=== PATIENT | female | born 1960 | race Caucasian/White ===

== ENCOUNTER 2018-05-29 23:47 | Emergency (ER) | payer OTHER ==
[~2018-05-29] VITALS: Wt 109.1 kg
[~2018-05-29 23:47] MED LIST: ACET500C5 PO; BENZ-6 PO; HYDR-3980 PO; IBUP-1542 PO; NEOM28OI2 TP; PROM6.25 PO
[2018-05-30] MEDS ORDERED: KETOROLAC 15 MG INJ IV STA (00:46)
[2018-05-30] MEDS ORDERED: ALBUTEROL 0.083% (NEB) 2.5 MG/3 ML AMP HHN STA (00:46)
--- NOTE | 2018-05-30 00:58 | ERD ---
ER Documentation Chief Complaint Chief Complaint vomiting/headache/dizziness x 1 day HPI This is a 58-year-old female with a past medical history of hypertension, diabetes, controlled with diet who is presenting with 1 day of fever, chills, total body aches, fatigue with occasional lightheadedness, a mild generalized waxing and waning headache with nausea and a few episodes of nonbilious nonbloody vomiting. She does not endorse any alleviating or exacerbating factors. The patient has had no vision changes. She does not report any photophobia or phonophobia or double or blurry vision. The patient does not endorse neck or back pain. The patient denies dizziness. The patient has had no chest pain or trouble breathing. The patient denies abdominal pain. The patient denies changes to bowel movements or urination. The patient has had no focal deficits. The patient has had no weakness or numbness or tingling to the face or extremities. ROS All systems reviewed and are negative except as per history of present illness. Medications Home Meds Active Scripts Neomycin Vann/Bacitrac Zn/Poly (Triple Antibiotic Ointment) 28 Gm Oint...g., 28 GM TP TID for 5 Days Prov:CECI GUILLERMO MD 12/30/15 Ibuprofen* (Ibuprofen*) 600 Mg Tablet, 600 MG PO Q6, #15 TAB Prov:CECI GUILLERMO MD 12/30/15 Hydrocodone/Acetaminophen ([place] 10-325 Tablet) 1 Each Tablet, 1 TAB PO Q6H PRN for PAIN, #12 TAB Prov:CECI GUILLERMO MD 12/30/15 Acetaminophen* (Tylophen*) 500 Mg Capsule, 1 CAP PO Q4 PRN for PAIN AND OR ELEVATED TEMP, #30 CAP Prov:DIOGENES ESPINOZA PA-C 04/12/15 Promethazine w/Codeine* (Phenergan w/Codeine* Syrup) 5 Ml Syrup, 5 ML PO Q4H PRN for COUGH, #120 ML Prov:DIOGENES ESPINOZA PA-C 04/12/15 Benzonatate* (Tessalon Perle*) 100 Mg Capsule, 100 MG PO TID, #20 CAP Prov:DIOGENES ESPINOZA PA-C 04/12/15 Allergies Allergies: Coded Allergies: No Known Allergy (Unverified , 12/30/15) PMhx/Soc History of Surgery: No Anesthesia Reaction: No Hx Neurological Disorder: No Hx Respiratory Disorders: No Hx Cardiac Disorders: Yes (Hypertension, diabetes) Hx Psychiatric Problems: No Hx Miscellaneous Medical Probl: No Hx Alcohol Use: No Hx Substance Use: No Hx Tobacco Use: No Smoking Status: Never smoker FmHx Family History: diabetes Physical Exam Vitals Vital Signs Date Temp Pulse Resp B/P (MAP) Pulse Ox O2 O2 Flow FiO2 Time Delivery Rate 05/30/18 98.9 90 21 123/68 98 Room Air 02:06 (86) 05/30/18 93 20 95 21 02:00 05/30/18 98.9 87 21 139/65 98 Room Air 01:14 (89) 05/30/18 37.2 01:09 05/30/18 98.9 88 15 151/58 98 Room Air 00:38 (89) 05/29/18 102.8 89 18 160/71 96 23:54 (100) Physical Exam Const: No apparent distress, well-developed, well-nourished Head: Normocephalic, Atraumatic Eyes: Normal Conjunctiva. Extraocular movements intact. Pupils equal, round and reactive to light ENT: Normal External Ears, Nose and Mouth. Neck: Full range of motion. No meningismus. Resp: Mild wheezing. Otherwise no respiratory distress with full breath sounds, no rales or rhonchi. Cardio: Regular rate and rhythm. No murmurs, rubs or gallops Abd: Soft, non tender, non distended. Normal bowel sounds Skin: No petechiae or rashes Back: No midline tenderness. No CVA tenderness Ext: No cyanosis, or edema Neur: Awake and alert, oriented 4. Cranial nerves intact. No facial droop. Normal strength, sensation and coordination. Psych: Normal Mood and Affect Results 24 hrs Current Medications Medications Dose Sig/Naye Start Time Status Last (Trade) Ordered Route PRN Stop Time Admin Dose Reason Admin Sodium 1,000 ml @ Q1H ONCE 05/30/18 DC 05/30/18 Chloride 1,000 mls/hr IV 01:00 05/30/18 01:04 01:59 Ketorolac 15 mg ONCE STAT 05/30/18 DC 05/30/18 Tromethamine IV 00:46 05/30/18 01:10 (Toradol) 00:48 10 mg ONCE ONCE 05/30/18 DC 05/30/18 Metoclopramid IV 01:00 05/30/18 01:09 e HCl 01:01 (Reglan) 25 mg ONCE ONCE 05/30/18 DC 05/30/18 Diphenhydrami IV 01:00 05/30/18 01:10 ne HCl 01:01 (Benadryl) Albuterol 5 mg ONCE STAT 05/30/18 DC 05/30/18 (Proventil HHN 00:46 05/30/18 01:59 0.083% (Neb)) 00:48 650 mg ONCE ONCE 05/30/18 DC 05/30/18 Acetaminophen PO 01:00 05/30/18 01:09 (Tylenol 01:01 Tab) Procedures/MDM MDM The patient's presentation warrants further investigation. Previous medical records, if available, were reviewed. LABS The patient's laboratory testing was obtained and reviewed. No emergent treatment was required unless described below. Influenza: Negative IMAGING Imaging and Radiology interpretation reviewed. CXR FINDINGS: Mediastinum: Unremarkable. Heart size: Normal. Pulmonary vasculature: No visible engorgement. Lungs: Clear. Costophrenic sulci: Clear. Bony structures: Grossly unremarkable for age. IMPRESSION: Unremarkable single view chest. Electronically viewed and signed by Marlo Caro Physician on 05/30/2018 01:25 TREATMENT/DISPOSITION The patient presents with flulike symptoms. The patient's influenza study is negative, but a viral syndrome is certainly a possibility. The patient did have some faint wheezing on exam. Viral bronchitis is likely. The patient's x-ray does not reveal pneumonia. While the patient is febrile, the patient's vital signs are otherwise unremarkable. The patient does not appear septic. I do not feel the patient requires a full septic workup. I doubt a bacterial etiology. I do not feel the patient would benefit from antibiotics. The patient also reports a headache. I believe this to be related to her viral syndrome as well. Differential diagnosis includes migraine, tension headache, cluster headache. The patient has no focal deficits. The neurologic exam is reassuring. I have decreased suspicion for cerebral ischemia. There was no trauma or injury. There is no personal or family history of cerebral aneurysm. This is not the worst headache of the patient's life. It was not acutely severe. It is been progressive in nature. I have decreased suspicion for SAH or other ICH. I have low suspicion for temporal arteritis, cavernous venous thrombosis, subdural hematoma, epidural hematoma, meningitis. I do not feel the patient requires CT imaging at this time. The patient was treated with IV fluids, Toradol, Tylenol, Reglan and Benadryl with improvement of her symptoms. DISCHARGE Upon reevaluation of the patient, symptoms have improved. No emergent diagnoses were identified. At this time, I feel that the patient stable for discharge. The patient was instructed to follow-up with a primary care physician in 1-3 days. The patient will be given strict precautions with which to return to the emergency department. Prescriptions: Zofran, ibuprofen, albuterol The patient's blood pressure was elevated at greater than 120/80 while in the emergency department. The patient was otherwise stable with no evidence of hypertensive urgency or emergency. The patient does not require admission for blood pressure control. I have discussed with the patient the risks of hypertension. I have instructed the patient to return to the ER for any new or worsening symptoms including chest pain, shortness of breath, headache, blurred vision, confusion, nausea, vomiting or LOC. I have advised the patient to follow up with the primary care physician for outpatient monitoring and treatment for hypertension in 1-3 days. Disclaimer: Inadvertent spelling and grammatical errors are likely due to EHR/dictation software use and do not reflect on the overall quality of patient care. Note that the electronic time recorded on this note does not necessarily reflect the actual time of the patient encounter. Departure Diagnosis: Primary Impression: Viral syndrome Additional Impressions: Bronchitis Fever Fever type: unspecified Qualified Codes: R50.9 - Fever, unspecified Myalgia Condition: Stable Patient Instructions: Bronchitis, No Antibiotic (Adult), Fever Control (Adult), Headache, Unspecified, Viral Syndrome (Adult) Additional Instructions: Thank you for for coming to [facility] for your care today. Please ask your nurse or provider if you have questions about your care today and do not leave until all your questions have been answered. Please use any medications given as directed and follow-up with your doctor (or the doctor you were referred to) in the next 1-3 days. If you do not have a primary care doctor you may follow up at the [facility] or [facility] (listed below). You may also use motrin and tylenol as needed for fever and/or pain unless instructed otherwise by your provider or nurse. Indications for more urgent follow-up have been discussed, but you may return to the Emergency Department at ANY time for any worrisome or worsening symptoms. If you have abdominal pain, please know that no test or exam you received is perfect and you should follow up within 8 hours for continued pain. If you had any imaging studies today, such as an X-Ray or CT Scan, these studies will be reviewed later by a radiologist. You will be called if there are important findings that were not identified today, so make sure the contact information you provided at registration is correct. If you received any narcotic pain control medicine today, such as Vicodin, Morphine or Dilaudid, your coordination and judgment may be affected for a number of hours. Please do not drive or operate heavy machinery, and you may want someone to assist you at home. If you were given a prescription for narcotic medication, be aware that it is very addictive- use sparingly and only if necessary. PLEASE SEEK FURTHER EVALUATION AND MANAGEMENT AT YOUR DOCTORS OFFICE WITHIN THE NEXT 1-3 DAYS. IT IS YOUR RESPONSIBILITY TO MAKE AN APPOINTMENT FOR FOLOW-UP CARE. IF YOU HAVE A PRIMARY DOCTOR, PLEASE CALL THEIR OFFICE TO SCHEDULE AN APPOINTMENT FOR FOLLOW UP. IF YOU DO NOT HAVE A PRIMARY DOCTOR YOU CAN CALL OUR PHYSICIAN REFERRAL HOTLINE AT IF YOU CAN NOT AFFORD TO SEE A PHYSICIAN YOU CAN CHOSE FROM THE FOLLOWING [facility] CL[facility]ICS: [facility] [address] [facility] [address] [facility] [address] [facility] [address] [facility] [address] [facility]. [facility]. [address] GIULIA NAJERA MD May 30, 2018 00:58
[2018-05-30] MEDS ORDERED: DIPHENHYDRAMINE 50 MG INJ IV ONE (01:00)
[2018-05-30] MEDS ORDERED: ACETAMINOPHEN 325 MG TAB PO ONE (01:00)
[2018-05-30] MEDS ORDERED: METOCLOPRAMIDE 10 MG INJ IV ONE (01:00)
[2018-05-30] MEDS ORDERED: SOD CHLORIDE 0.9% 1,000 ML IV ONE (01:00)
[2018-05-30 02:40] VITALS: BP 131/59; PULSE 95; RESP 21
[2018-05-30] MEDS ORDERED: IBUP-1542 PO (02:47)
[2018-05-30] MEDS ORDERED: ALBU18HF INHALATION (02:47)
[2018-05-30] MEDS ORDERED: ONDA4TAB8 PO (02:47)
== END 2018-05-30 03:08 | disposition home or self-care (01) ==
LOC: E/R 23:47
DX: B34.9 Viral infection, unspecified (principal); M79.10 Myalgia, unspecified site; I10 Essential (primary) hypertension; E11.9 Type 2 diabetes mellitus without complications
CPT/HCPCS: 71045; 87400; 94664; 96374; 96375; J1200; J1885; J2765; J7030; Z7502; Z7610